=== PATIENT | male | born 1990 | race African-American/Black ===

== ENCOUNTER 2016-05-18 10:54 | Emergency (ER) | payer SELFPAY ==
[~2016-05-18] VITALS: Ht 167.6 cm; Wt 74.0 kg
[~2016-05-18 10:54] MED LIST: AMOX500T PO; PERC5TAB12 PO
[2016-05-18 11:00] VITALS: BP 137/93; PULSE 81; RESP 16; TEMP 99.2; O2SAT 99
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
== END 2016-05-18 13:15 | disposition home or self-care (01) ==
LOC: PHEFT 10:54
DX: S62.316A Displaced fracture of base of fifth metacarpal bone, right hand, initial encounter for closed fracture (principal); F17.210 Nicotine dependence, cigarettes, uncomplicated; W22.09XA Striking against other stationary object, initial encounter; Y93.9 Activity, unspecified; Y92.9 Unspecified place or not applicable; Y99.8 Other external cause status
CPT/HCPCS: 29125; 73130

== ENCOUNTER 2016-05-20 14:36 | Emergency (ER) | payer SELFPAY ==
[~2016-05-20] VITALS: Ht 167.6 cm; Wt 73.5 kg
[2016-05-20 14:44] VITALS: BP 152/99; PULSE 65; RESP 16; TEMP 98.3; O2SAT 96
--- NOTE | 2016-05-20 15:15 | PD ---
HPI . wants pain meds for fracture Chief Complaint: Pain: Acute or Chronic Time Seen by Provider: 15:14 Travel History International Travel<30 days: No Contact w/Intl Traveler<30days: No Traveled to known affect area: No History of Present Illness HPI 25 year-old male here with complaints of pain to his right hand. Patient was seen a few days ago and has a right fifth metacarpal fracture and was told to follow up with orthopedic. He tells me his call around for prices and has not yet found someone. He is now experiencing pain and would like something for pain control. PFSH Past Medical History Diminished Hearing: No Immunizations Current: No Social History Alcohol Use: Yes ("OCCASIONAL") Tobacco Use: Yes (03/02 PPD) Substance Use: No Allergies-Medications (Allergen,Severity, Reaction): Coded Allergies: [place] (Verified Allergy, Severe, Anaphylaxis, 05/20/16) ITCHY THROAT Shellfish (Verified Allergy, Intermediate, Anaphylaxis, 05/20/16) ITCHY THROAT Reported Meds & Prescriptions Reported Meds & Active Scripts Active Tramadol (Tramadol HCl) 50 Mg Tab 50 Mg PO Q8H PRN Review of Systems General / Constitutional: No: Fever Eyes: No: Visual changes HENT: No: Headaches Cardiovascular: No: Chest Pain or Discomfort Respiratory: No: Shortness of Breath Gastrointestinal: No: Abdominal Pain Genitourinary: No: Dysuria Musculoskeletal: Positive: Pain (right hand pain) Skin: No Rash Neurologic: No: Weakness Psychiatric: No: Depression Endocrine: No: Polydipsia Hematologic/Lymphatic: No: Easy Bruising Physical Exam Narrative GENERAL: AAO x 3, no acute distress, Well-nourished, well-developed patient. SKIN: Warm and dry. No visible rashes or bruising. HEAD: Normocephalic and atraumatic. EYES: No scleral icterus. No injection or drainage. ENT: No nasal drainage noted. Mucous membranes pink. Airway patent. NECK: Supple, trachea midline. No JVD. CARDIOVASCULAR: Regular rate and rhythm without murmurs, gallops, or rubs. RESPIRATORY: Breath sounds equal bilaterally. No accessory muscle use. No rhonchi or rales. GASTROINTESTINAL: Abdomen soft, non-tender, nondistended. EXTREMITIES: No cyanosis or edema. no edema of right hand, digits mobile, no evidence of compartment syndrome BACK: Nontender without obvious deformity. No CVA tenderness. PSYCH: AAO x 3, normal affect. Data Data Last Documented VS Vital Signs Date Time Temp Pulse Resp B/P Pulse Ox O2 Delivery O2 Flow Rate FiO2 05/20/16 14:44 98.3 65 16 152/99 96 MDM Medical Decision Making Medical Screen Exam Complete: Yes Emergency Medical Condition: Yes Medical Record Reviewed: Yes Differential Diagnosis Fifth metacarpal fracture, less likely cellulitis, Narrative Course 25 year-old male here with complaints of pain to his right hand. Patient was seen a few days ago and has a right fifth metacarpal fracture and was told to follow up with orthopedic. He tells me his call around for prices and has not yet found someone. He is now experiencing pain and would like something for pain control. Patient seen and examined. We will provide him with tramadol for pain control. He has been advised that he will need to follow-up with ortho as soon as possible. I explained to him that delay of care to me loss of function this extremity. Patient verbalized understanding of instructions, questions were answered, and thanked me for their care. I advised them if their condition worsens, please return to the nearest emergency room for further care. Diagnosis Primary Impression: Closed fracture of 5th metacarpal Qualified Code: S62.306D - Closed nondisplaced fracture of fifth metacarpal bone of right hand with routine healing, unspecified portion of metacarpal, subsequent encounter Referrals: Orthopedist Patient Instructions: General Instructions Additional Instructions: Please see an orthopedic physician as soon as possible. You need orthopedic care. Delay in care can mean poor healing and loss of function in this hand. Please return to emergency department if your symptoms return or worsen. Follow up with your primary care provider. Take medications as prescribed. Scripts Tramadol 50 Mg Tab50 Mg PO Q8H PRN (PAIN) #10 TAB Ref 0 Prov:Steven Mckay MD 05/20/16 Disposition: 01 DISCHARGE HOME Condition: Stable Dea Hernandez May 20, 2016 15:14
[2016-05-20] MEDS ORDERED: TRAM50TA PO (15:19)
== END 2016-05-20 15:34 | disposition home or self-care (01) ==
LOC: PHED 14:36 → PHEFT 15:34
DX: S62.306D Unspecified fracture of fifth metacarpal bone, right hand, subsequent encounter for fracture with routine healing (principal); F17.210 Nicotine dependence, cigarettes, uncomplicated; X58.XXXD Exposure to other specified factors, subsequent encounter
CPT/HCPCS: 99283

== ENCOUNTER 2016-07-08 18:48 | Emergency (ER) | payer SELFPAY ==
[~2016-07-08] VITALS: Ht 167.6 cm; Wt 75.0 kg
[~2016-07-08 18:48] MED LIST changes: -AMOX500T PO; -PERC5TAB12 PO; +TRAM50TA PO
[2016-07-08 19:10] VITALS: BP 131/86; PULSE 78; RESP 18; TEMP 99.2; O2SAT 97
[2016-07-08] MEDS ORDERED: LIDOCAINE HCL 1% 50 ML VIAL XX ONE (19:45)
[2016-07-08] MEDS ORDERED: AZITHROMYCIN 250 MG TAB PO ONE (19:45)
[2016-07-08] MEDS ORDERED: cefTRIAXone 250 MG VIAL IM ONE (19:45)
[2016-07-08] MEDS ORDERED: SODIUM CHLORIDE 0.9% FLUSH 10 ML FLUSH IVF PRN (19:45)
--- NOTE | 2016-07-08 19:50 | PD ---
HPI Chief Complaint: Complaint Time Seen by Provider: 19:45 Travel History International Travel<30 days: No Contact w/Intl Traveler<30days: No Traveled to known affect area: No History of Present Illness HPI This 25-year-old male is complaining of urethral discharge. He says his been present for 2-3 days. He has not noted any other lesions. PFSH Past Medical History Diminished Hearing: No Immunizations Current: No Social History Alcohol Use: Yes ("OCCASIONAL") Tobacco Use: Yes (1/3ppd) Substance Use: No Allergies-Medications (Allergen,Severity, Reaction): Coded Allergies: [place] (Verified Allergy, Severe, Anaphylaxis, 07/08/16) ITCHY THROAT Shellfish (Verified Allergy, Intermediate, Anaphylaxis, 07/08/16) ITCHY THROAT Reported Meds & Prescriptions Reported Meds & Active Scripts Active No Active Prescriptions or Reported Medications Review of Systems General / Constitutional: No: Fever, Chills Eyes: No: Diploplia Cardiovascular: No: Chest Pain or Discomfort Gastrointestinal: No: Vomiting Genitourinary: Positive: Dysuria Endocrine: No: Heat Intolerance Physical Exam Narrative GENERAL: [-] SKIN: Focused skin assessment warm/dry. HEAD: Atraumatic. Normocephalic. EYES: Pupils equal and round. No scleral icterus. No injection or drainage. ENT: No nasal bleeding or discharge. Mucous membranes pink and moist. MUSCULOSKELETAL: No obvious deformities. No clubbing. No cyanosis. No edema. . PSYCHIATRIC: Appropriate mood and affect; insight and judgment normal. : There are no ulcerations or lesions noted on the genitalia. There is a white urethral discharge present Data Data Last Documented VS Vital Signs Date Time Temp Pulse Resp B/P Pulse Ox O2 Delivery O2 Flow Rate FiO2 07/08/16 19:10 99.2 78 18 131/86 97 Orders Gc And Chlamydia Pcr (07/08/16 19:45) Azithromycin (Zithromax) (07/08/16 19:45) Ceftriaxone Inj (Rocephin Inj) (07/08/16 19:45) Sodium Chloride 0.9% Flush (Ns Flush) (07/08/16 19:45) Lidocaine 1% Inj (50 Ml) (Xylocaine 1% I (07/08/16 19:45) MDM Medical Decision Making Medical Screen Exam Complete: Yes Emergency Medical Condition: Yes Medical Record Reviewed: Yes Differential Diagnosis Differential includes gonorrhea, chlamydia, urethritis Narrative Course Patient has urethritis and will be given Rocephin and Zithromax Diagnosis Primary Impression: Urethritis Scripts No Active Prescriptions or Reported Meds Disposition: 01 DISCHARGE HOME Condition: Stable Miguel Ángel Chua MD July 08, 2016 19:50
[2016-07-09 03:14] LABS: CHLAMYDIA PCR NOT DETECTED (NOT DETECT); NEISSERIA PCR DETECTED (NOT DETECT)
== END 2016-07-08 20:34 | disposition home or self-care (01) ==
LOC: PHEFT 18:48
DX: N34.2 Other urethritis (principal); F17.200 Nicotine dependence, unspecified, uncomplicated
CPT/HCPCS: 87491; 87591; 96372; 99283; J0696

== ENCOUNTER 2017-01-24 13:18 | Emergency (ER) | payer SELFPAY ==
[2017-01-24 13:23] VITALS: BP 151/78; PULSE 89; RESP 18; TEMP 97.5; O2SAT 97
--- NOTE | 2017-01-24 13:28 | PD ---
HPI Chief Complaint: ENT Complaint Time Seen by Provider: 13:26 Travel History International Travel<30 days: No Contact w/Intl Traveler<30days: No Traveled to known affect area: No History of Present Illness HPI 26-year-old male presents to the emergency department for evaluation of penile discharge started yesterday. Patient told triage nurse that he was here for sore throat. He states he did this because he was embarrassed. He states he has no sore throat. Patient states he started with some intermittent penile discharge yesterday. He states he had unprotected sex with a new sexual partner for the penile discharge started. Patient denies any testicular pain or swelling. No abdominal pain. No fevers or chills. He has no chronic medical problems and takes no prescribed medications. No exacerbating or alleviating factors. Severity is mild to moderate. PFSH Past Medical History Diminished Hearing: No Immunizations Current: No Social History Alcohol Use: Yes ("OCCASIONAL") Tobacco Use: Yes (1/3ppd) Substance Use: No Allergies-Medications (Allergen,Severity, Reaction): Coded Allergies: [place] (Unverified Allergy, Severe, Anaphylaxis, 01/24/17) ITCHY THROAT shellfish derived (Unverified Allergy, Intermediate, Anaphylaxis, 01/24/17 ) ITCHY THROAT Reported Meds & Prescriptions Reported Meds & Active Scripts Active No Active Prescriptions or Reported Medications Review of Systems Except as stated in HPI: all other systems reviewed are Neg Physical Exam Narrative GENERAL: Well-nourished, well-developed male patient, ambulatory. Afebrile. SKIN: Focused skin assessment warm/dry. HEAD: Normocephalic. Atraumatic. EYES: No scleral icterus. No injection or drainage. NECK: Supple, trachea midline. No JVD or lymphadenopathy. CARDIOVASCULAR: Regular rate and rhythm without murmurs, gallops, or rubs. RESPIRATORY: Breath sounds equal bilaterally. No accessory muscle use. Lungs sounds are clear to auscultation. GASTROINTESTINAL: Abdomen soft, non-tender, nondistended. MUSCULOSKELETAL: No cyanosis, or edema. BACK: Nontender without obvious deformity. No CVA tenderness. Data Data Last Documented VS Vital Signs Date Time Temp Pulse Resp B/P (MAP) Pulse Ox O2 Delivery O2 Flow Rate FiO2 01/24/17 13:57 01/24/17 13:56 73 12 96 Room Air 01/24/17 13:23 97.5 Orders Orders Gc And Chlamydia Pcr (01/24/17 13:26) Azithromycin Powd Pack (Zithromax Powd P (01/24/17 13:30) Ceftriaxone Inj (Rocephin Inj) (01/24/17 13:30) Lidocaine 1% Inj (50 Ml) (Xylocaine 1% I (01/24/17 13:30) Ed Discharge Order (01/24/17 13:28) Labs Laboratory Tests Test 01/24/17 13:30 [facility] Medical Decision Making Medical Screen Exam Complete: Yes Emergency Medical Condition: Yes Medical Record Reviewed: Yes Differential Diagnosis STD versus urethritis versus medical clearance Narrative Course 26-year-old male presents to the emergency department for evaluation of penile discharge and started yesterday. He did tell the triage nurse he was here for sore throat, but states he only told her that because he was embarrassed and is not the reason for coming to the emergency department today. He denies any sore throat or upper respiratory symptoms to me. Patient is requesting prophylactic treatment for chlamydia and gonorrhea. Urine for chlamydia and gonorrhea are ordered and pending. Patient is given Rocephin 250 mg IM, azithromycin 1 g by mouth. He is encouraged to follow-up with [place] department or primary care physician for further STD workup. He verbalizes agreement and understanding. Diagnosis Primary Impression: Urethritis Referrals: Primary Care Physician Patient Instructions: General Instructions, Nonspecific Urethritis in Men (ED) Additional Instructions: Use protection when having sex. Follow up at the health department or primary care physician for further STD workup. Return to the emergency department for any acute, worsening of symptoms. Med/Other Pt SpecificInfo: No Change to Meds Scripts No Active Prescriptions or Reported Meds Disposition: 01 DISCHARGE HOME Condition: Stable Alicia Diamond LILA Jan 24, 2017 13:28
[2017-01-24] MEDS ORDERED: LIDOCAINE HCL 1% 50 ML VIAL XX ONE (13:30)
[2017-01-24] MEDS ORDERED: cefTRIAXone 250 MG VIAL IM ONE (13:30)
[2017-01-24] MEDS ORDERED: AZITHROMYCIN PWD FOR SUSP 1 GM PACKET PO ONE (13:30)
[2017-01-24 13:56] VITALS: BP 142/81; PULSE 73; RESP 12; O2SAT 96
[2017-01-24 19:11] LABS: CHLAMYDIA PCR NOT DETECTED (NOT DETECT); NEISSERIA PCR NOT DETECTED (NOT DETECT)
== END 2017-01-24 13:58 | disposition home or self-care (01) ==
LOC: PHEFT 13:18
DX: N34.2 Other urethritis (principal); F17.210 Nicotine dependence, cigarettes, uncomplicated
CPT/HCPCS: 87491; 87591; 96372; 99284; J0696

== ENCOUNTER 2017-07-14 11:17 | Emergency (ER) | END 2017-07-14 15:46 | disposition home or self-care (01) | DX: N34.2 Other urethritis (principal); F17.200 Nicotine dependence, unspecified, uncomplicated | CPT/HCPCS: 81001; 87086; 87491; 87591; 96372; 99283; J0696 ==